=== PATIENT | male | born 1955 | race Asian ===

== ENCOUNTER 2023-11-04 11:03 | Day surgery (SDC) | payer BC ==
[~2023-11-04 11:03] MED LIST: BALANCED SALT IRRIG SOLN COMB1 500 ML, EPINEPHRINE-PF 1:1000 0.5 MG IO ONE
[2023-11-04] MEDS ORDERED: PROPARACAINE 0.5% OPHT DROP 15 ML BOTTLE ONE (11:30)
[2023-11-04] MEDS ORDERED: PHENYLEPHRINE 2.5% OPHT DROP 2 ML BOTTLE ONE (11:30)
[2023-11-04] MEDS ORDERED: CYCLOPENTOLATE 1% OPHT DROP 2 ML BOTTLE ONE (11:30)
[2023-11-04] MEDS ORDERED: CIPROFLOXACIN 0.3% OPHT DROP 2.5 ML BOTTLE ONE (11:30)
[2023-11-04] MEDS ORDERED: TROPICAMIDE 1% OPHT DROP 3 ML BOTTLE ONE (11:30)
[2023-11-04] MEDS ORDERED: KETOROLAC 0.5% OPHT DROP 3 ML BOTTLE ONE (11:30)
[2023-11-04] MEDS ORDERED: LIDOCAINE HCL-MPF 1% 5 ML VIAL ONE (11:53)
[2023-11-04] MEDS ORDERED: BALANCED SALT IRRIG SOLN COMB2 15 ML IRRIG.SOLN ONE (11:53)
[2023-11-04] MEDS ORDERED: ACETYLCHOLINE CHLORIDE 1% OPHT 1 EA KIT ONE (11:54)
[2023-11-04] MEDS ORDERED: NEO/POLYMYX B/DEXAME OPHT OINT 3.5 GM TUBE ONE (11:54)
[2023-11-04] MEDS ORDERED: MOXIFLOXACIN HCL 3 ML OPHT DROPS ONE (11:54)
[2023-11-04] MEDS ORDERED: HYALURONATE SODIUM 8.5 MG/0.85 ML ONE (11:54)
[2023-11-04] MEDS ORDERED: TETRACAINE HCL 0.5% OPHT DROP 2 ML BOTTLE ONE (11:54)
[2023-11-04] MEDS ORDERED: BUPIVACAINE PF 0.5% 30 ML VIAL ONE (12:05)
[2023-11-04] MEDS ORDERED: LIDOCAINE-MPF 2% 5 ML VIAL ONE (12:05)
[2023-11-04] MEDS ORDERED: FENTANYL CITRATE 100 MCG/2 ML AMPUL ONE (12:24)
[2023-11-04] MEDS ORDERED: MIDAZOLAM HCL 2 MG/2 ML VIAL ONE (12:25)
[2023-11-04] MEDS ORDERED: PROPOFOL 200 MG/20 ML BOTTLE ONE (12:30)
[2023-11-04] MEDS ORDERED: BALANCED SALT IRRIG SOLN COMB1 500 ML ONE (13:00)
[2023-11-04] MEDS ORDERED: HYALURONATE SODIUM 12.8 MG/0.8 ML DISP.SYRIN ONE (13:00)
[2023-11-04 14:40] VITALS: TEMP 97.5
== END 2023-11-04 14:50 | disposition home or self-care (01) ==
LOC: DS 11:03
PROVIDERS: ATTEND Ophthalmology
DX: E11.36 Type 2 diabetes mellitus with diabetic cataract (principal); H25.89 Other age-related cataract; I10 Essential (primary) hypertension; I25.10 Atherosclerotic heart disease of native coronary artery without angina pectoris; J43.9 Emphysema, unspecified; M10.9 Gout, unspecified; E78.5 Hyperlipidemia, unspecified; Z79.899 Other long term (current) drug therapy; Z98.890 Other specified postprocedural states
CPT/HCPCS: 66984; J0171; J2250; J3010; J3490; J7321; V2632; A4663